=== PATIENT | female | born 1960 | race African-American/Black ===

== ENCOUNTER 2017-05-09 10:06 | Emergency (ER) | payer OTHER ==
[2017-05-09] MEDS ORDERED: SODIUM CHLOR 0.9% 1000 ML INJ 1,000 ML IV SCH (10:13)
[2017-05-09] MEDS ORDERED: FAMOTIDINE 20 MG/2 ML VIAL IV PUSH ONE (10:15)
[2017-05-09] MEDS ORDERED: diphenhydrAMINE HCL 50 MG/ML VIAL IVP ONE (10:15)
[2017-05-09] MEDS ORDERED: EPINEPHrine HCL (1:1000) 1 MG/ML VIAL IM ONE (10:15)
[2017-05-09] MEDS ORDERED: SODIUM CHLORIDE 0.9% FLUSH 10 ML FLUSH IV FLUSH PRN (10:15)
[2017-05-09] MEDS ORDERED: diphenhydrAMINE HCL 50 MG/ML VIAL ONE (10:15)
[2017-05-09] MEDS ORDERED: methylPREDNISolone SOD SUCC 125 MG/2 ML VIAL IM ONE (10:15)
[2017-05-09] MEDS ORDERED: EPINEPHrine HCL (1:1000) 1 MG/ML VIAL ONE (10:16)
[2017-05-09 10:21] VITALS: BP 128/90; PULSE 60; RESP 18; TEMP 98.2; O2SAT 99
[2017-05-09 10:35] VITALS: BP 157/97; PULSE 58; RESP 18; O2SAT 98
[2017-05-09] MEDS ORDERED: ACET325C PO (10:39)
[2017-05-09] MEDS ORDERED: IBUP-232 PO (10:39)
[2017-05-09] MEDS ORDERED: LISI20TA3 PO (10:39)
[2017-05-09 13:00] VITALS: BP 128/83; PULSE 59; RESP 18; O2SAT 98
--- NOTE | 2017-05-09 13:22 | PD ---
HPI Chief Complaint: Allergic/Adverse Reaction Time Seen by Provider: 10:08 Travel History International Travel<30 days: No Contact w/Intl Traveler<30days: No Traveled to known affect area: No History of Present Illness HPI 56-year-old female came to the emergency room brought by her daughter with history of tongue swelling that was noticed at 5:30 this morning. Patient is having difficulty talking. No history of difficulty breathing. Patient takes lisinopril. No history of stridor. Vital signs are stable. Patient is not drooling. She is on Lisinopril for a very long time for her blood pressure. [facility] Past Medical History Narrative Medical List of her past medical, surgical, social and family history is reviewed from the nursing note. Arthritis: Yes Hypertension: Yes ?: Not Social History Alcohol Use: No Tobacco Use: No Substance Use: No Allergies-Medications (Allergen,Severity, Reaction): Coded Allergies: No Known Allergies (Unverified , 05/09/17) Comments No known drug allergies. Reported Meds & Prescriptions Reported Meds & Active Scripts Active Benadryl Allergy (Diphenhydramine HCl) 25 Mg Cap 1 Tab PO Q6HR Prednisone 20 Mg Tab 20 Mg PO BID 5 Days Amlodipine (Amlodipine Besylate) 5 Mg Tab 5 Mg PO DAILY Reported Ibuprofen 600 Mg Tab 600 Mg PO Q6H PRN Acetaminophen 325 Mg Capsule 650 Mg PO Q4-6H Lisinopril-Hctz 20-25 Mg Tab 1 Tab PO DAILY Narrative Medication List of her home medications reviewed from the nursing note. Review of Systems Except as stated in HPI: all other systems reviewed are Neg Physical Exam Narrative GENERAL: Awake, alert, moderate distress SKIN: Focused skin assessment warm/dry. HEAD: Atraumatic. Normocephalic. EYES: Pupils equal and round. No scleral icterus. No injection or drainage. ENT: No nasal bleeding or discharge. Mucous membranes pink and moist. Tongue is swollen mostly on the left half anteriorly. No stridor or drooling NECK: Trachea midline. No JVD. CARDIOVASCULAR: Regular rate and rhythm. No murmur appreciated. RESPIRATORY: No accessory muscle use. Clear to auscultation. Breath sounds equal bilaterally. GASTROINTESTINAL: Abdomen soft, non-tender, nondistended. Hepatic and splenic margins not palpable. MUSCULOSKELETAL: No obvious deformities. No clubbing. No cyanosis. No edema. NEUROLOGICAL: Awake and alert. No obvious cranial nerve deficits. Motor grossly within normal limits. Normal speech. PSYCHIATRIC: Appropriate mood and affect; insight and judgment normal. Data Data Last Documented VS Vital Signs Date Time Temp Pulse Resp B/P (MAP) Pulse Ox O2 Delivery O2 Flow Rate FiO2 05/09/17 14:30 74 18 136/84 (101) 98 05/09/17 13:00 Room Air 05/09/17 10:21 98.2 Orders Orders Ecg Monitoring (05/09/17 10:13) Iv Access Insert/Monitor (05/09/17 10:13) Oximetry (05/09/17 10:13) Diphenhydramine Inj (Benadryl Inj) (05/09/17 10:15) Methylprednisolone So Succ Inj (Solumedr (05/09/17 10:15) Famotidine Inj (Pepcid Inj) (05/09/17 10:15) Sodium Chlor 0.9% 1000 Ml Inj (Ns 1000 M (05/09/17 10:13) Sodium Chloride 0.9% Flush (Ns Flush) (05/09/17 10:15) Epinephrine (1:1000) Inj (Adrenalin (1:1 (05/09/17 10:15) Diphenhydramine Inj (Benadryl Inj) (05/09/17 10:15) Epinephrine (1:1000) Inj (Adrenalin (1:1 (05/09/17 10:16) MDM Medical Decision Making Medical Screen Exam Complete: Yes Emergency Medical Condition: Yes Medical Record Reviewed: Yes Differential Diagnosis Angioedema secondary to DAV inhibitor Narrative Course 1:22 PM patient was given epinephrine, Solu-Medrol, Benadryl and famotidine. Currently patient symptoms have remarkably improved. The swelling is much better. I had planned to observe her for 4 hours from the time she got the medication. If she continues to do the same I will discharge her home. This has been conveyed to the patient and her daughter and the understand. Obviously patient should not go back to taking lisinopril. Instead I'll start her on amlodipine. 1:59 PM patient continues to be okay. I'll discharge her home with medication. Procedures EKG Prior to Arrival: No Diagnosis Primary Impression: DAV inhibitor-aggravated angioedema Qualified Codes: T78.3XXA - Angioneurotic edema, initial encounter; T46.4X5A - Adverse effect of zqzygcvldwh-vsttkcdqyz-rwizib inhibitors, initial encounter Referrals: Primary Care Physician Additional Instructions: Stop taking lisinopril. Take the new blood pressure medication prescribed to you from the emergency room. Take the other medications as per the prescription direction. Please return to the ER or call 911 if symptoms worsen or any other new concerns. Otherwise follow-up with your primary care. Med/Other Pt SpecificInfo: Prescription(s) given Scripts Diphenhydramine HCl (Benadryl Allergy) 25 Mg Cap 1 TAB PO Q6HR, #20 Prov: Africa Oneill MD 05/09/17 Prednisone (Prednisone) 20 Mg Tab 20 MG PO BID for 5 Days, TAB 0 Refills Prov: Africa Oneill MD 05/09/17 Amlodipine (Amlodipine) 5 Mg Tab 5 MG PO DAILY for Blood Pressure Management, #30 TAB 0 Refills Prov: Africa Oneill MD 05/09/17 Disposition: 01 DISCHARGE HOME Condition: Stable Africa Oneill MD May 09, 2017 13:22
[2017-05-09] MEDS ORDERED: PRED20 PO (14:01)
[2017-05-09] MEDS ORDERED: AMLO5TAB2 PO (14:01)
[2017-05-09] MEDS ORDERED: BENA25CA4 PO (14:01)
[2017-05-09 14:30] VITALS: BP 136/84
== END 2017-05-09 14:58 | disposition home or self-care (01) ==
LOC: NEPE 10:06
DX: T78.3XXA Angioneurotic edema, initial encounter (principal); T46.4X5A Adverse effect of angiotensin-converting-enzyme inhibitors, initial encounter; I10 Essential (primary) hypertension
CPT/HCPCS: 96361; 96372; 96374; 96375; 99284; J0171; J1200; J2930; J7030

== ENCOUNTER 2018-03-12 08:55 | Emergency (ER) | payer OTHER ==
[~2018-03-12] VITALS: Ht 157.5 cm; Wt 100.0 kg
[~2018-03-12 08:55] MED LIST: ACET325C PO; AMLO5TAB2 PO; BENA25CA4 PO; IBUP-232 PO; LISI20TA3 PO; PRED20 PO
[2018-03-12 09:02] VITALS: BP 115/78; PULSE 97; RESP 16; TEMP 99.1; O2SAT 97
[2018-03-12] MEDS ORDERED: ATEN50TA PO (09:17)
[2018-03-12] MEDS ORDERED: CEPH-460 PO (09:35)
[2018-03-12] MEDS ORDERED: MUPI2OIN TOPICAL (09:35)
[2018-03-12] MEDS ORDERED: IBUP-232 PO (09:35)
--- NOTE | 2018-03-12 09:35 | PD ---
HPI Chief Complaint: Skin Problem Time Seen by Provider: 09:16 Travel History International Travel<30 days: No Contact w/Intl Traveler<30days: No Traveled to known affect area: No History of Present Illness HPI 57-year-old female who states she has no medical history presents emergency department for evaluation of a painful red growth on the medial aspect of her right fourth nail. Patient states she notices about a week ago. It has become larger and more painful. She states that she keeps hitting it in the skin around it has become reddened. There is a purulent drainage from under her. She denies any fever or chills. States the pain is constant, throbbing. It is exacerbated by touch. She has no other symptoms to report. [facility] Past Medical History Arthritis: Yes Hypertension: Yes ?: Not Social History Alcohol Use: No Tobacco Use: No Substance Use: No Allergies-Medications (Allergen,Severity, Reaction): Coded Allergies: No Known Allergies (Unverified Adverse Reaction, Unknown, 03/12/18) Reported Meds & Prescriptions Reported Meds & Active Scripts Active Amlodipine (Amlodipine Besylate) 5 Mg Tab 5 Mg PO DAILY Reported Atenolol 50 Mg Tab 50 Mg PO DAILY Acetaminophen 325 Mg Capsule 650 Mg PO Q4-6H Lisinopril-Hctz 20-25 Mg Tab 1 Tab PO DAILY Review of Systems Except as stated in HPI: all other systems reviewed are Neg Physical Exam Narrative GENERAL: Well-nourished, well-developed female patient in no acute distress SKIN: Focused skin assessment warm/dry. Subcentimeter excoriated growth medial to the right fourth digit nail. It is slightly raised from the skin surface. There is a purulent drainage at the base of it. It is tender to touch. HEAD: Normocephalic. EYES: No scleral icterus. No injection or drainage. NECK: Supple, trachea midline. No JVD or lymphadenopathy. CARDIOVASCULAR: Regular rate and rhythm without murmurs, gallops, or rubs. RESPIRATORY: Breath sounds equal bilaterally. No accessory muscle use. Data Data Last Documented VS Vital Signs Date Time Temp Pulse Resp B/P (MAP) Pulse Ox O2 Delivery O2 Flow Rate FiO2 03/12/18 09:02 99.1 97 16 115/78 (90) 97 MDM Medical Decision Making Medical Screen Exam Complete: Yes Emergency Medical Condition: Yes Medical Record Reviewed: Yes Differential Diagnosis Pyogenic granuloma versus abscess versus erysipelas versus felon versus paronychia Narrative Course 57-year-old female presents emergency department for evaluation of painful growth medial to her right fourth nail. This is consistent with a pyogenic granuloma. I encouraged the patient to cover with a Band-Aid so does not keep getting caught on things and to follow-up with a side hemmer or her primary care provider to have it removed. She will be started on oral antibiotics due to the pain at the base of it due to her hitting it on things to reduce risk of infection. Culture has been taken from the drainage at the base. She agrees to return immediately with acute worsening symptoms. Diagnosis Primary Impression: Pyogenic granuloma of skin Referrals: Ent Physician Primary Care Physician Patient Instructions: Acute Wound Care (DC), General Instructions Additional Instructions: Epson salt soaks may help alleviate pain Keep a Band-Aid over the area so it does not get caught on and pulled on things Follow-up with a side hemmer Seek primary care evaluation Return immediately with acute worsening symptoms Med/Other Pt SpecificInfo: Prescription(s) given Scripts Ibuprofen (Ibuprofen) 600 Mg Tab 600 MG PO Q8HR Y for PAIN, #30 TAB 0 Refills Prov: Calli Oleary 03/12/18 Mupirocin Topical (Mupirocin Topical) 2 % Oint 1 APPLIC TOPICAL BID for Mgmt Bacterial Infection, #1 TUBE 0 Refills Prov: Calli Oleary 03/12/18 Cephalexin (Keflex) 500 Mg Cap 500 MG PO Q6H for Infection for 5 Days, #20 CAP 0 Refills Prov: Calli Oleary 03/12/18 Disposition: 01 DISCHARGE HOME Condition: Stable Calli Oleary Mar 12, 2018 09:35
== END 2018-03-12 10:02 | disposition home or self-care (01) ==
LOC: NEPK 08:55
DX: L98.0 Pyogenic granuloma (principal); I10 Essential (primary) hypertension
CPT/HCPCS: 86403; 87070; 87077; 87185; 87186; 99283